=== PATIENT | female | born 1940 | race Asian ===

== ENCOUNTER 2016-04-18 10:28 | Emergency (ER) | payer MEDICARE, BC ==
[~2016-04-18] VITALS: Ht 154.9 cm; Wt 50.0 kg
[2016-04-18 10:46] LABS: GLUCOSE,POINT OF CARE 114 MG/DL (70-110)
[2016-04-18] MEDS ORDERED: CARB25DR OP (10:52)
[2016-04-18] MEDS ORDERED: [UNRECOGNIZED DRUG - OTHER] PO (10:52)
[2016-04-18] MEDS ORDERED: APIX5TAB PO (10:52)
[2016-04-18] MEDS ORDERED: DRON400T PO (10:52)
[2016-04-18] MEDS ORDERED: XALA2.5OS OU (10:52)
[2016-04-18] MEDS ORDERED: VITAD1000 PO (10:52)
[2016-04-18] MEDS ORDERED: LOSA25TA21 PO (10:52)
[2016-04-18] MEDS ORDERED: IBAN150T PO (10:52)
[2016-04-18] MEDS ORDERED: [UNRECOGNIZED DRUG - OTHER] PO (10:52)
[2016-04-18] MEDS ORDERED: VIT1CAPS47 PO (10:52)
[2016-04-18] MEDS ORDERED: METO25 PO (10:52)
[2016-04-18] MEDS ORDERED: CA C-1 PO (10:52)
[2016-04-18 11:25] VITALS: BP 127/91
[2016-04-18 11:28] LABS: BASOPHILS % (AUTO) 0.3 % (0.0-2.0); EOSINOPHILS % (AUTO) 1.1 % (1.0-6.0); HEMATOCRIT 40.2 % (36-46); HEMOGLOBIN 13.5 g/dL (12.0-16.0); LYMPHOCYTES # (AUTO) 1.9 K/uL (1.0-4.8); MEAN CORPUSCULAR HGB CONC 33.4 G/dL (31.0-37.0); MEAN CORPUSCULAR VOLUME 87 fL (80-100); MONOCYTES # (AUTO) 0.4 K/uL (0.1-1.0); MONOCYTES % (AUTO) 8.1 % (2.0-9.0); NEUTROPHILS % (AUTO) 55.5 % (40.0-70.0); PLATELET COUNT (AUTO) 226 K/uL (150-450); RED BLOOD CELL COUNT(AUTO) 4.64 MIL/uL (4.00-5.20); RED CELL DISTRIBUTION WIDTH 13.5 % (11.5-14.5); WHITE BLOOD COUNT (AUTO) 5.3 K/uL (4.5-11.0)
[2016-04-18 11:38] LABS: CALCIUM, TOTAL 9.7 mg/dL (8.8-10.5); CREATININE 0.92 mg/dL (0.60-1.30); POTASSIUM 4.1 mmol/L (3.5-5.1)
[2016-04-18 11:44] LABS: BILIRUBIN,TOTAL 0.4 mg/dL (0.1-1.0); TOTAL PROTEIN, SERUM 7.7 g/dL (6.4-8.2)
== END 2016-04-18 12:38 | disposition home or self-care (01) ==
LOC: EMS 10:30
DX: S09.90XA Unspecified injury of head, initial encounter (principal); R55 Syncope and collapse; M79.672 Pain in left foot; I48.91 Unspecified atrial fibrillation; E11.9 Type 2 diabetes mellitus without complications; I10 Essential (primary) hypertension; W18.30XA Fall on same level, unspecified, initial encounter; Y93.89 Activity, other specified; Y92.098 Other place in other non-institutional residence as the place of occurrence of the external cause; Y99.8 Other external cause status
CPT/HCPCS: 70450; 82962; 93005; 99285

== ENCOUNTER 2022-02-17 15:05 | Emergency (ER) | payer BC, MEDICARE ==
[~2022-02-17] VITALS: Ht 160 cm; Wt 49.1 kg
[~2022-02-17 15:05] MED LIST: APIX5TAB PO; CA C-1 PO; CARB25DR OP; CHOL100018 PO; DRON400T6 PO; IBAN150T16 PO; LOSA-381 PO; METO25 PO; VIT1CAPS47 PO; XALA2.5OS OU; [UNRECOGNIZED DRUG - OTHER] PO; [UNRECOGNIZED DRUG - OTHER] PO
[2022-02-17] MEDS ORDERED: CHOL200059 PO (16:05)
[2022-02-17] MEDS ORDERED: ALEN70TA65 PO (16:05)
[2022-02-17] MEDS ORDERED: ROSU10TA72 PO (16:05)
[2022-02-17] MEDS ORDERED: GABA-1216 PO (16:05)
[2022-02-17] MEDS ORDERED: APIX2.5T PO (16:05)
[2022-02-17] MEDS ORDERED: DRON400T6 PO (16:05)
[2022-02-17] MEDS ORDERED: LOSA-382 PO (16:05)
[2022-02-17] MEDS ORDERED: AMIO400T4 PO (16:18)
[2022-02-17 17:28] LABS: HEMATOCRIT 33.2 % (36-46); HEMOGLOBIN 11.2 g/dL (12.0-16.0); MEAN CORPUSCULAR HEMOGLOBIN 29.1 pg (26.0-34.0); MEAN CORPUSCULAR HGB CONC 33.8 G/dL (31.0-37.0); MEAN CORPUSCULAR VOLUME 86 fL (80-100); PLATELET COUNT (AUTO) 101 K/uL (150-450); RED BLOOD CELL COUNT(AUTO) 3.87 MIL/uL (4.00-5.20); RED CELL DISTRIBUTION WIDTH 14.1 % (11.5-14.5)
[2022-02-17 17:40] LABS: CALCIUM, TOTAL 8.9 mg/dL (8.8-10.5); CREATININE 1.61 mg/dL (0.60-1.30); POTASSIUM 3.7 mmol/L (3.5-5.1)
[2022-02-17 17:43] LABS: BAND NEUTROPHILS % (MANUAL) 6 % (0-5); LYMPHOCYTES % (MANUAL) 12 % (22-44); MONOCYTES % (MANUAL) 31 % (2-9); REACTIVE LYMPHOCYTES 2 % (0-0); SEGMENTED NEUTROPHILS % 49 % (40-70)
[2022-02-17 18:04] LABS: ALBUMIN 3.1 g/dL (3.4-5.0); BILIRUBIN,TOTAL 2.2 mg/dL (0.1-1.0); TOTAL PROTEIN, SERUM 5.7 g/dL (6.4-8.2)
[2022-02-17 19:30] VITALS: BP 121/61
== END 2022-02-17 22:26 | disposition home or self-care (01) ==
LOC: EMS 15:09
DX: S70.01XA Contusion of right hip, initial encounter (principal); E11.9 Type 2 diabetes mellitus without complications; F03.90 Unspecified dementia, unspecified severity, without behavioral disturbance, psychotic disturbance, mood disturbance, and anxiety; I10 Essential (primary) hypertension; I48.91 Unspecified atrial fibrillation; R74.01 Elevation of levels of liver transaminase levels; W19.XXXA Unspecified fall, initial encounter; Y93.89 Activity, other specified; Y92.89 Other specified places as the place of occurrence of the external cause; Y99.8 Other external cause status; Z88.5 Allergy status to narcotic agent; Z86.000 Personal history of in-situ neoplasm of breast
CPT/HCPCS: 70450; 71045; 73502; 80053; 82550; 84484; 85025; 93005; 99285; 36415-L1; 36415-TC